=== PATIENT | male | born 1990 | race Caucasian/White ===

== ENCOUNTER 2020-09-08 15:50 | Emergency (ER) | payer BC, OTHER ==
[2020-09-08] MEDS ORDERED: Diphtheria,Pertussis(Acell),Tetanus Vaccine 0.5 ML Syringe IM ONE (16:43)
[2020-09-08] MEDS ORDERED: Lidocaine 1% 10 ML MDV INJECT ONE (16:43)
--- NOTE | 2020-09-08 16:46 | EDM.PDOC ---
ED HPI GENERAL MEDICAL PROBLEM - General Chief Complaint: Laceration Stated Complaint: L INDEX FINGER LAC Time Seen by Provider: 09/08/20 16:33 Source of Information: Reports: Patient, RN Notes Reviewed History Limitations: Reports: No Limitations - History of Present Illness INITIAL COMMENTS - FREE TEXT/NARRATIVE: Patient is a 30-year-old male who presents to the ED for left index finger laceration. Patient notes he was working with a grinding wheel at around 3 PM, when he noticed that he had some blood in his glove. He took off his glove and this resulted in a 1.5 cm linear laceration to the posterior aspect of the patient DIP joint. Patient is not really sure how he got caught in that area however he is unable to straighten his finger out, end has a mallet finger deformity. Patient has no strength with extension of the finger. This is not actively bleeding at this time. Patient's not up-to-date on his tetanus vaccine. patient denies any other sick-like symptoms, fever/chills, cough/shortness of breath, nausea/vomiting/diarrhea. - Related Data Allergies Allergy/AdvReac Type Severity Reaction Status Date / Time No Known Allergies Allergy Verified 09/08/20 16:18 Home Meds: Home Meds . 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 ED EXAM, SKIN/RASH Exam: See Below Exam Limited By: No Limitations General Appearance: Alert, WD/WN, No Apparent Distress Respiratory/Chest: No Respiratory Distress, Lungs Clear, Normal Breath Sounds, No Accessory Muscle Use, Chest Non-Tender Cardiovascular: Normal Peripheral Pulses, Regular Rate, Rhythm, No Murmur Peripheral Pulses: 2+: Radial (L), Radial (R) Extremities: Normal Capillary Refill, Limited Range of Motion (of extension of left index finger) Neurological: Alert, Oriented, Normal Cognition Psychiatric: Normal Affect, Normal Mood Skin: Warm, Dry, Normal Color, No Rash ED SKIN PROCEDURES - Laceration/Wound Repair Left Posterior Distal Digit - 2nd (Index) Appearance: Subcutaneous, Linear, Clean Distal NVT: Neuro & Vascular Intact Skin Prep: Providone-Iodine (Betadine) Exploration/Debridement/Repair: Wound Explored, In a Bloodless Field, Explored to Base, No Foreign Material Found Closed with: Other (pt's finger will be dressed with pressure dressing gauze) Lac/Wound length In cm: 1.5 Sterile Dressing Applied: Nurse Tetanus Status Addressed: Yes Complications: No Course - Vital Signs Last Recorded V/S: Last Vital Signs Temp 97.6 F 09/08/20 16:14 Pulse 93 09/08/20 16:14 Resp 16 09/08/20 16:14 BP 155/90 H 09/08/20 16:14 Pulse Ox 94 L 09/08/20 16:14 - Re-Assessments/Exams Free Text/Narrative Re-Assessment/Exam: 09/08/20 16:47 Patient is a 30-year-old male who presents to the ED for the evaluation of his left index finger laceration. He has ruptured his extensor tendon, resulting in a mallet finger deformity. We will fix the laceration but will have to refer him to hand surgery in [place], Dr. Heck at [facility] will line up someone for him to see regarding hand specialty. 09/08/20 16:49 Dr. Heck would require the patient be put on Keflex for prophylaxis, he will follow up with Dr. Morales regarding the patient's status, he request that the patient go to [place] tomorrow, and is n.p.o. after midnight for surgical management of the patient's deformity. 09/08/20 16:52 Due to the patient having a surgical consult tomorrow, sutures will not be placed, we will bandaged the wound as appropriate, get him on some Keflex as recommended and have him follow-up with Dr. Morales tomorrow Departure - Departure Time of Disposition: 16:53 Disposition: Home, Self-Care 01 Condition: Good Clinical Impression: Mallet deformity of index finger, Extensor tendon disruption Laceration of left index finger Qualifiers: Encounter type: initial encounter Damage to nail status: without damage Foreign body presence: without foreign body Qualified Code(s): S61.211A - Laceration without foreign body of left index finger without damage to nail, initial encounter - Discharge Information *PRESCRIPTION DRUG MONITORING PROGRAM REVIEWED*: No *COPY OF PRESCRIPTION DRUG MONITORING REPORT IN PATIENT JEANETTE: No Instructions: Mallet Finger Referrals: PCP,None [Primary Care Provider] - Additional Instructions: You were evaluated in the ER today for your finger laceration. You have obviously disrupted your extensor tendon of your left index finger, this has resulted in a mallet finger deformity. Your wound was cleansed at today's visit, hand surgery in [place] was called on your behalf, you will need to go to [facility] in [place] tomorrow morning around 10 AM central time for surgical management to reattach the tendon that you have disrupted. You will need to be n.p.o. after midnight tonight, and go there as directed to get this fixed otherwise she will have permanent damage. You have been started on oral antibiotics, please take as directed until gone. You can take your medication tomorrow morning, but no food, please take with only a small amount of liquid. You will need to follow-up with Dr. Morales to have your finger fixed, please let them know that you were seen in the ER in [place], and that I talked with Dr. Beau pillai regarding referral. Your finger was dressed with a pressure gauze type dressing, please keep this intact until you are seen by the hand surgeon. Please return to the ER at any time if symptoms change or worsen. Sepsis Event Note (ED) - Evaluation Sepsis Screening Result: No Definite Risk - Focused Exam Vital Signs: Vital Signs Temp Pulse Resp BP Pulse Ox 09/08/20 16:14 97.6 F 93 16 155/90 H 94 L
== END 2020-09-08 17:34 | disposition home or self-care (01) ==
LOC: JD.ED 15:50
DX: S56.422A Laceration of extensor muscle, fascia and tendon of left index finger at forearm level, initial encounter (principal); M20.012 Mallet finger of left finger(s); E66.9 Obesity, unspecified; Z68.36 Body mass index [BMI] 36.0-36.9, adult; Z23 Encounter for immunization; W26.8XXA Contact with other sharp object(s), not elsewhere classified, initial encounter
CPT/HCPCS: 12001; 90471; 90715; 99282; 99283